=== PATIENT | female | born 1960 | race Caucasian/White ===

== ENCOUNTER → 2024-09-09 15:08 | Observation (INO) ==
[2024-09-07 19:51] LABS: Basophils #(Absolute) Auto 0.1 (0.0-0.1); Eosinophils#(Absolute)Auto 0.1 (0.0-0.2)
[2024-09-07 19:57] LABS: Monocytes #(Absolute)- Auto 0.4 (1.1-3.1)
[2024-09-07 20:00] LABS: Basophils%(Percent) Auto 1.5 (0.1-0.85); Eosinophils%(Percent) Auto 1.8 % (0.4-2.8); Granulocytes % - Auto 70.3 % (47.8-71.3); Granulocytes#(Absolute)- Auto 3.7 (2.3-6.0); Mean Corpuscular Volume 51.5 fl (81.0-93.7); Monocytes %(Percent)- Auto 7.4 % (3.6-9.8); Platelet Count 280 K/uL (152-353); White Blood Count 5.2 K/uL (4.3-9.3)
[2024-09-07 20:34] LABS: Potassium 3.6 mmol/L (3.6-5.2)
[2024-09-07 21:02] LABS: Hematocrit 17.9 % (35.9-46.7)
[2024-09-07] MEDS: 0.9 % SODIUM CHLORIDE 1000 ML 1,000 ML IV SCH (23:00)
[2024-09-08] MEDS: 0.9 % SODIUM CHLORIDE 500 ML IV ONE (05:52)
[2024-09-08 06:15] LABS: PH BODY FLUID EXCP BLOOD 6.5 (5 - 9); Specific Gravity Urine 1.015 (1.001-1.035); Urine Appearance CLOUDY (CLEAR); Urine Blood NEGATIVE (NEG - TRACE); Urine Color PALE YELLOW (STRAW/YELL.); Urine Urobilinogen Normal (NORMAL)
[2024-09-08 06:16] LABS: Urine Amorphous Sediment Negative (Negative); Urine Yeast Negative (Negative)
[2024-09-08] MEDS: CEFTRIAXONE SODIUM 1 GM in 0.9 % SODIUM CHLORIDE MB+ 50 ML IV SCH (10:12)
[2024-09-08] MEDS: SODIUM CHLORIDE 0.9% IV ONE (12:20)
[2024-09-08] MEDS: FERUMOXYTOL IV ONE (12:20)
[2024-09-08 13:13] LABS: Basophils #(Absolute) Auto 0.1 (0.0-0.1); Basophils%(Percent) Auto 1.4 (0.1-0.85); Eosinophils#(Absolute)Auto 0.2 (0.0-0.2); Eosinophils%(Percent) Auto 3.4 % (0.4-2.8); Granulocytes % - Auto 73.4 % (47.8-71.3); Granulocytes#(Absolute)- Auto 4.4 (2.3-6.0); Hematocrit 26.5 % (35.9-46.7); Mean Corpuscular Volume 61.5 fl (81.0-93.7); Monocytes #(Absolute)- Auto 0.3 (1.1-3.1); Monocytes %(Percent)- Auto 5.6 % (3.6-9.8); Platelet Count 250 K/uL (152-353)
[2024-09-08 13:26] LABS: Potassium 3.7 mmol/L (3.6-5.2)
[2024-09-09 06:21] LABS: Basophils #(Absolute) Auto 0.1 (0.0-0.1); Basophils%(Percent) Auto 1.8 (0.1-0.85); Eosinophils#(Absolute)Auto 0.2 (0.0-0.2); Eosinophils%(Percent) Auto 5.5 % (0.4-2.8); Granulocytes % - Auto 63.5 % (47.8-71.3); Granulocytes#(Absolute)- Auto 2.6 (2.3-6.0); Hematocrit 25.3 % (35.9-46.7); Mean Corpuscular Volume 60.9 fl (81.0-93.7); Monocytes #(Absolute)- Auto 0.3 (1.1-3.1); Monocytes %(Percent)- Auto 6.8 % (3.6-9.8); Platelet Count 244 K/uL (152-353); White Blood Count 4.1 K/uL (4.3-9.3)
[2024-09-09 06:43] LABS: Carbon Dioxide 28 mmol/L (21-32); Glucose 95 mg/dL (70-110); Potassium 3.5 mmol/L (3.6-5.2); Sodium 146 mmol/L (136-145)
[2024-09-09 08:29] VITALS: RESP 18
[2024-09-09] MEDS: THYROID 30 MG PO SCH (09:28)
[2024-09-09 12:22] VITALS: BP 116/68; PULSE 76; TEMP 98.4
--- NOTE | 2024-09-09 14:05 | History & Physical Report ---
H&P: HPI History of Present Illness Chief complaint: ANEMIA,WEAKNESS, NEAR SYNCOPE Narrative: A 63 year old with known anemia and iron deficiency came into her PCP office at [facility] with increased shortness of breath and weakness and passed out last pm at home and feels like she is about to pass out often today. Patient states taking iron and medications and tries to be compliant with medications but often forgets. Denies any vomiting nor nausea and no bowel changes and no color changes noted to her stools Review of Systems Constitutional Reports: chills, fatigue, malaise and change in sleep pattern; Denies: fever, change in weight or night sweats Eyes Reports: blurry vision; Denies: change in vision, blind spots, light sensitivity or eye discomfort Ears, nose, mouth, and throat Reports: neck pain, hoarseness, dry mouth and vertigo; Denies: throat pain, throat swelling, difficulty swallowing, mouth pain, swelling of lips/tongue, ear pain, change in hearing, tinnitus or nasal discharge Cardiovascular Reports: palpitations; Denies: chest pain, edema, swelling of feet/ankles, lightheadedness, shortness of breath with exertion or shortness of breath when lying down Respiratory Reports: shortness of breath; Denies: cough, wheezing, stridor or coughing up blood Gastrointestinal Reports: heartburn; Denies: abdominal pain, nausea, vomiting, coffee grounds in vomit, diarrhea, constipation or bloating Genitourinary Reports: urinary incontinence; Denies: painful urination, urinary frequency, urinary urgency, blood in urine, difficulty voiding or decreased urine ouput Musculoskeletal Reports: back pain, neck pain and extremity pain; Denies: extremity swelling, joint pain or limited range of motion Integumentary/Breast Reports: rash, itching and redness; Denies: jaundice or nail changes Neurological Reports: headache; Denies: numbness in extremities or weakness in extremities Psychiatric Reports: anxiety; Denies: mood swings, panic attacks, change in sleep pattern or hopelessness Endocrine Reports: fatigue; Denies: excessive urination, excessive thirst, cold intolerance, excessive sweating, flushing, heat intolerance or deepening of the voice Hematologic/Lymphatic Denies: easy bruising, easy bleeding or enlarged lymph nodes Allergic/Immunologic Denies: hives, throat swelling, tongue swelling, facial swelling, wheezing or itchy eyes [facility] Medical History Syncope Anxiety and depression Fatigue Anemia, iron deficiency Social History Problems where you live: no known problems Highest level of school completed/degree received: College Gender Identity: female Meds Home Medications and Allergies Home Medications Medication Instructions Recorded Confirmed Type thyroid (pork) 30 mg tablet (CLAIMS ADJUDICATOR 30 mg PO QDAC 09/08/24 09/08/24 History Thyroid) ciprofloxacin HCl 500 mg tablet 500 mg PO Q12H uti #7 tabs 09/09/24 Rx (Cipro) ferrous sulfate 325 mg (65 mg 325 mg PO DAILY iron deficiency 09/09/24 Rx iron) tablet (iron) #30 tabs Allergies Allergy/AdvReac Type Severity Reaction Status Date / Time No Known Drug Allergies Allergy Verified 09/08/24 02:44 Exam Exam: Patient sitting up on side of bed at time of exam. Constitutional: normal general appearance, no apparent distress, abnormal body habitus (obese), no limitations and alert Vital Signs - 24 hr 09/07/24 20:00 09/07/24 23:22 09/07/24 23:54 Temperature 98.0 F 98.1 F 98.1 F Pulse Rate 78 Pulse Rate [Bilate ral] 86 77 Respiratory Rate 19 17 19 Blood Pressure 124/68 Blood Pressure [Le ft Radial Artery] 116/59 130/70 Pulse Oximetry 92 L 98 97 Oxygen Delivery Me od Room Air Room Air 09/08/24 00:09 09/08/24 00:23 09/08/24 01:24 Temperature 98.0 F 97.9 F 98.8 F Pulse Rate 78 74 70 Pulse Rate [Bilate ral] Respiratory Rate 18 18 18 Blood Pressure 122/64 122/61 123/60 Blood Pressure [Le ft Radial Artery] Pulse Oximetry 98 98 96 Oxygen Delivery Me thod 09/08/24 02:23 09/08/24 03:30 09/08/24 03:46 Temperature 97.9 F 97.9 F 97.9 F Pulse Rate 65 70 Pulse Rate [Bilate ral] 73 Respiratory Rate 18 18 20 Blood Pressure 115/60 128/58 Blood Pressure [Le ft Radial Artery] 116/63 Pulse [facility]ximetry 97 95 [facility] 09/08/24 04:33 09/08/24 04:51 09/08/24 05:33 Temperature 98.0 F 97.9 F 97.9 F Pulse Rate 67 70 71 Pulse Rate [Bilate ral] Respiratory Rate 18 18 18 Blood Pressure 123/60 123/53 122/50 Blood Pressure [Le ft Radial Artery] Pulse Oximetry 96 98 95 Oxygen Delivery [facility] 09/08/24 06:33 09/08/24 07:42 09/08/24 07:43 Temperature 98.0 F 97.9 F 97.9 F Pulse Rate 65 70 70 Pulse Rate [Bilate ral] Respiratory Rate 18 20 20 Blood Pressure 104/64 125/64 125/64 Blood Pressure [Le ft Radial Artery] Pulse Oximetry 95 96 96 Oxygen Delivery [facility] 09/08/24 07:51 09/08/24 08:53 09/08/24 11:53 Temperature 97.9 F 97.7 F 97.5 F L Pulse Rate 70 Pulse Rate [Bilate ral] 70 66 Respiratory Rate 20 18 20 Blood Pressure 106/61 Blood Pressure [Le ft Radial Artery] 125/64 107/60 Pulse Oximetry 96 95 95 Oxygen Delivery [facility] Room Air Room Air 09/08/24 16:00 Temperature 97.9 F Pulse Rate Pulse Rate [Bilate ral] 74 Respiratory Rate 20 Blood Pressure Blood Pressure [Le ft Radial Artery] 116/58 Pulse Oximetry 93 L Oxygen Delivery [facility] Room Air HENMT: normocephalic, head/scalp atraumatic, hearing grossly normal bilaterally, external ears normal and external nose normal Eyes: PERRL, conjunctivae normal, fundi normal bilaterally, alignment normal, periorbital findings normal and visual acuity normal Neck/C-Spine: visual inspection normal, trachea midline, cervical spine nontender, cervical full ROM noted and supple Lymph: no lymphadenopathy noted and no lymphedema noted Chest: inspection of chest normal and palpation of chest normal Respiratory: breath sounds equal bilaterally, normal respiratory effort, clear to auscultation bilaterally and no wheezes Cardiovascular: normal heart rate noted, regular rhythm noted and no murmur Gastrointestinal: abdomen normal to inspection, abdomen soft to palpation, nontender to palpation, nondistended and normoactive bowel sounds Genitourinary: no CVA tenderness and bladder normal to palpation Back/Pelvis: spine normal to inspection, no thoracic spine tenderness, no l umbar spine tenderness, thoracic spine ROM normal and lumbar spine ROM normal Extremities: normal to inspection, normal to palpation, no tenderness, full ROM and no deformity Neurology: injection press operator II-XII intact, no movement abnormality noted, no focal motor deficit noted, no sensory deficits noted, deep tendon reflexes 2+ bilaterally, gait normal, speech normal, coordination normal, no pronator drift noted and no fasciculations noted Psychiatry: Mental Status Exam documented within this Exam's Psych section mental status grossly normal, oriented x3, thought process normal, cooperative, affect normal, psychomotor activity normal and memory normal Skin: skin color normal, no rash, no lesions, no ecchymosis noted, no wounds, no lacerations and skin turgor normal Assessment and Plan Assessment and Plan (1) Anemia, iron deficiency: Code(s): D50.9 - Iron deficiency anemia, unspecified (2) Fatigue: Code(s): R53.83 - Other fatigue (3) Syncope: Code(s): R55 - Syncope and collapse (4) Hypothyroid: Code(s): E03.9 - Hypothyroidism, unspecified (5) Anxiety and depression: Code(s): F41.9 - Anxiety disorder, unspecified; F32.A - Depression, unspecified (6) UTI (urinary tract infection): Code(s): N39.0 - Urinary tract infection, site not specified Results Labs Labs: CBC WBC 6.0 K/uL (4.3-9.3) 09/08/24 13:03 RBC 4.3 M/uL (4.00-5.50) 09/08/24 13:03 Hgb 7.8 gm/dL (12.5-15.8) L 09/08/24 13:03 Hct 26.5 % (35.9-46.7) L 09/08/24 13:03 MCV 61.5 fl (81.0-93.7) L 09/08/24 13:03 MCH 18.2 pg (27.6-32.2) L 09/08/24 13:03 MCHC 29.6 g/dl (33.1-35.3) L 09/08/24 13:03 RDW 33.1 % (11.4-14.2) H 09/08/24 13:03 Plt Count 250 K/uL (152-353) 09/08/24 13:03 MPV 8.5 fl (6.9-10.8) 09/08/24 13:03 Gran % 73.4 % (47.8-71.3) H 09/08/24 13:03 Lymph % (Auto) 16.2 % (20.0-43.0) L 09/08/24 13:03 [place] % (Auto) 5.6 % (3.6-9.8) 09/08/24 13:03 Eos % (Auto) 3.4 % (0.4-2.8) H 09/08/24 13:03 Baso % (Auto) 1.4 (0.1-0.85) H 09/08/24 13:03 Lymph # (Auto) 1.0 (1.1-3.1) L 09/08/24 13:03 [place] # (Auto) 0.3 (1.1-3.1) L 09/08/24 13:03 Eos # (Auto) 0.2 (0.0-0.2) 09/08/24 13:03 Baso # (Auto) 0.1 (0.0-0.1) 09/08/24 13:03 Absolute Gran (auto) 4.4 (2.3-6.0) 09/08/24 13:03 BMP Sodium 146 mmol/L (136-145) H 09/08/24 13:03 Potassium 3.7 mmol/L (3.6-5.2) 09/08/24 13:03 Chloride 110.0 mmol/L (98-107) H 09/08/24 13:03 Carbon Dioxide 30 mmol/L (21-32) 09/08/24 13:03 Anion Gap 6.0 mEq/L (4-14) 09/08/24 13:03 BUN 14 mg/dL (7-18) 09/08/24 13:03 Creatinine 0.8 mg/dL (0.6-1.3) 09/08/24 13:03 Estimated GFR 82.2 (>59.9) 09/08/24 13:03 Glucose 96 mg/dL (70-110) 09/08/24 13:03 Calcium 8.2 mg/dL (8.5-10.1) L 09/08/24 13:03 Phosphorus 3.6 mg/dL (2.5-4.9) 09/08/24 13:03 Magnesium 2.2 mg/dL (1.8-2.4) 09/08/24 13:03 Total Bilirubin 0.90 mg/dL (0.0-1.0) 09/08/24 13:03 AST 17 U/L (15-37) 09/08/24 13:03 ALT 20 U/L (30-65) L 09/08/24 13:03 Alkaline Phosphatase 53 U/L (50-136) 09/08/24 13:03 Total Protein 6.1 g/dL (6.4-8.2) L 09/08/24 13:03 Albumin 3.4 g/dL (3.4-5.0) 09/08/24 13:03 Liver Function Total Bilirubin 0.90 mg/dL (0.0-1.0) 09/08/24 13:03 AST 17 U/L (15-37) 09/08/24 13:03 ALT 20 U/L (30-65) L 09/08/24 13:03 Alkaline Phosphatase 53 U/L (50-136) 09/08/24 13:03 Total Protein 6.1 g/dL (6.4-8.2) L 09/08/24 13:03 Albumin 3.4 g/dL (3.4-5.0) 09/08/24 13:03 Urine Urine Color Pale yellow (STRAW/YELL.) 09/07/24 04:50 Urine Appearance Cloudy (CLEAR) 09/07/24 04:50 Ur Specific [place] 1.015 (1.001-1.035) 09/07/24 04:50 Urine Protein Negative (NEGATIVE) 09/07/24 04:50 Urine Glucose (UA) Normal (NORMAL) 09/07/24 04:50 Urine Ketones Negative (NEGATIVE) 09/07/24 04:50 Urine Occult Blood Negative (NEG - TRACE) 09/07/24 04:50 Urine Nitrite Positive (NEGATIVE) 09/07/24 04:50 Urine Bilirubin Negative (NEGATIVE) 09/07/24 04:50 Urine Urobilinogen Normal (NORMAL) 09/07/24 04:50 Ur Leukocyte Esterase Positive (NEGATIVE) 09/07/24 04:50
--- NOTE | 2024-09-18 16:14 | Discharge Summary ---
DS: Providers Provider Date of admission: 09/07/24 17:50 Primary care physician: Valencia Diaz DO Consults: 09/08/24 09:19 Consult to Occupational Therapy Routine Comment: Consulting Provider: Reason for consultation: near syncope and weak Physician Instructions: evaluate and treat and treatment plan Consult to Pharmacy Routine Comment: Consulting Provider: Physician Instructions: Reason for consultation: low iron needs iron infusion started Consult to Physical Therapy Routine Comment: Consulting Provider: Reason for consultation: near syncope and weak Physician Instructions: evaluate and treat and treatment plan DS: Diagnosis Discharge Diagnosis (1) Anemia, iron deficiency: Qualifiers: Iron deficiency anemia type: unspecified iron deficiency Qualified Code(s): D50.9 - Iron deficiency anemia, unspecified (2) Fatigue: Qualifiers: Fatigue type: other Qualified Code(s): R53.83 - Other fatigue (3) Syncope: Qualifiers: Syncope type: vasovagal syncope Qualified Code(s): R55 - Syncope and collapse (4) Hypothyroid: Qualifiers: Hypothyroidism type: unspecified Qualified Code(s): E03.9 - Hypothyroidism, unspecified (5) Anxiety and depression: (6) UTI (urinary tract infection): Qualifiers: Urinary tract infection type: site unspecified Hematuria presence: with hematuria Qualified Code(s): N39.0 - Urinary tract infection, site not specified; R31.9 - Hematuria, unspecified Plan Iron Infusion before D/C Discharge home for self care. DS: Summary Hospital Course Hospital Course: Patient is a 63 year old female direct admitted by JOANA Ha under the care of Dr. Valencia Diaz DO to the Med/Surg unit for Anemia secondary to Iron Deficiency, Syncope, and Fatigue. Patient had a Hgb of 4.9 on admission. Two units of PRBC's were transfused through the first night of hospital stay. Hgb came up to 7.8. Patient received an Iron infusion prior to discharge home. Patient stated she felt a lot better and labs improved; patient is ready to discharge home for self care. Further instructions to follow up with PCP in 5-7 days of discharge, sooner if condition worsens. Per nurse, PCP office informed of follow up Iron infusion to be done in 3-5 days. Status at Discharge Functional status at discharge: independent ambulation Overall status at discharge: patient is back to baseline Time Spent with Patient Time attestation: Total time spent providing and/or coordinating discharge services: Time spent: greater than 30 minutes Exam Exam: Patient sitting up on side of bed at time of exam. Constitutional: normal general appearance, no apparent distress, abnormal body habitus (obese), no limitations and alert Vital Signs - 24 hr 09/08/24 20:00 09/09/24 00:00 09/09/24 04:00 Temperature 98.7 F 98 F 98.7 F Pulse Rate [Bilate ral] 72 64 64 Respiratory Rate 18 17 17 Blood Pressure [Le ft Radial Artery] 139/72 128/63 136/64 Pulse Oximetry 96 91 L 95 Oxygen Delivery Me thod Room Air Room Air Room Air 09/09/24 08:00 09/09/24 12:00 Temperature 97.7 F 98.4 F Pulse Rate [Bilate ral] 58 L 76 Respiratory Rate 18 18 Blood Pressure [Le ft Radial Artery] 118/62 116/68 Pulse Oximetry 92 L 92 L Oxygen Delivery Me thod Room Air Room Air HENMT: normocephalic, head/scalp atraumatic, hearing grossly normal bilaterally, external ears normal and external nose normal Eyes: PERRL, conjunctivae normal, fundi normal bilaterally, alignment normal, periorbital findings normal and visual acuity normal Neck/C-Spine: visual inspection normal, trachea midline, cervical spine nontender, cervical full ROM noted and supple Lymph: no lymphadenopathy noted and no lymphedema noted Chest: inspection of chest normal and palpation of chest normal Respiratory: breath sounds equal bilaterally, normal respiratory effort, clear to auscultation bilaterally and no wheezes Cardiovascular: normal heart rate noted, regular rhythm noted and no murmur Gastrointestinal: abdomen normal to inspection, abdomen soft to palpation, nontender to palpation, nondistended and normoactive bowel sounds Genitourinary: no CVA tenderness and bladder normal to palpation Back/Pelvis: spine normal to inspection, no thoracic spine tenderness, no lumbar spine tenderness, thoracic spine ROM normal and lumbar spine ROM normal Extremities: normal to inspection, normal to palpation, no tenderness, full ROM and no deformity Neurology: technical project manager II-XII intact, no movement abnormality noted, no focal motor deficit noted, no sensory deficits noted, deep tendon reflexes 2+ bilaterally, gait normal, speech normal, coordination normal, no pronator drift noted and no fasciculations noted Psychiatry: Mental Status Exam documented within this Exam's Psych section mental status grossly normal, oriented x3, thought process normal, cooperative, affect normal, psychomotor activity normal and memory normal Skin: skin color normal, no rash, no lesions, no ecchymosis noted, no wounds, no lacerations and skin turgor normal DS: Data Data Completed and Pending Labs on day of discharge: Labs from last 24 hours 09/09/24 09/09/24 12:23 06:13 WBC 4.1 L RBC 4.2 Hgb 7.8 L Hct 25.3 L MCV 60.9 L MCH 18.8 L MCHC 30.8 L RDW 33.5 H Plt Count 244 MPV 8.1 Gran % 63.5 Lymph % (Auto) 22.4 [place] % (Auto) 6.8 Eos % (Auto) 5.5 H Baso % (Auto) 1.8 H Lymph # (Auto) 0.9 L [place] # (Auto) 0.3 L Eos # (Auto) 0.2 Baso # (Auto) 0.1 Absolute Gran (auto) 2.6 Sodium 146 H Potassium 3.5 L Chloride 111.0 H Carbon Dioxide 28 Anion Gap 7.0 BUN 9 Creatinine 0.8 Estimated GFR 82.2 Glucose 95 Calcium 8.5 Phosphorus 3.7 Magnesium 2.2 Total Bilirubin 0.84 AST <5 L ALT 20 L Alkaline Phosphatase 55 Total Protein 5.9 L Albumin 3.2 L TSH 1.86 Stl Occ Bld (IFOB) Scr Negative Preliminary micro results at discharge 09/07/24 04:50 Urine Culture - Preliminary Urine,Clean Catch Discharge Plan Discharge Disposition: Home, Self-Care Condition: Improved Discharge Medications: New ciprofloxacin HCl [Cipro] 500 mg tablet 500 mg PO Q12H Qty: 7 0RF ferrous sulfate [iron] 325 mg (65 mg iron) tablet 325 mg PO DAILY Qty: 30 0RF Continued thyroid (pork) [CHIEF I DISPATCHER Thyroid] 30 mg tablet 30 mg PO QDAC Patient Comments: TAKE 1 TABLET BY MOUTH ONCE DAILY Discharge Orders: Discharge Order (Routine); Ordered 09/09/24 Ordered By: Valencia Diaz Activity: increase activity as tolerated Diet: advance to your usual diet Diet Detail: AVOID SODAS AND CITRUS DRINKS AND INCREASE WATER INTAKE Interventions: Discharge Assessment Last Done: 09/09/24 14:20 MED/SURG & ICU Observation Charge Sheet Last Done: 09/09/24 06:30 Patient Instructions: Urinary Tract Infection in Women (GEN), Iron Rich Diet (GEN), Anemia (GEN) Activity Restrictions/Additional Instructions: Patient understands to avoid sodas citrus drinks and that she needs to increase her water intake and she will receive a full list of foods rich in iron that can help replenish iron stores. She needs repeat the Feraheme in the infusion center here in 3 to 5 days and follow with her PCP in 7 days Any further dizziness syncope or concerns patient is return to the ER or PCP PARUL as appropriate Nuclear stress test as an outpatient Forms: Portal/[employer] Info Access Inst Discharge Date/Time: 09/09/24 15:08
== END | disposition home or self-care (01) ==
LOC: MS
PROVIDERS: ADMIT Family Medicine; ATTEND Family Medicine
DX: R31.9 Hematuria, unspecified; F32.A Depression, unspecified; F41.9 Anxiety disorder, unspecified; N39.0 Urinary tract infection, site not specified; D50.8 Other iron deficiency anemias; R55 Syncope and collapse; E03.8 Other specified hypothyroidism; R53.83 Other fatigue